=== PATIENT | female | born 1990 | race Caucasian/White ===

== ENCOUNTER 2022-01-16 19:36 | Inpatient (IN) | payer BC ==
[2022-01-16] MEDS ORDERED: Calcium Carbonate 500 MG Tab.Chew PO PRN (19:48)
[2022-01-16] MEDS ORDERED: Nalbuphine HCl 10 MG/ 1ML Amp IVPUSH PRN (19:48)
[2022-01-16] MEDS ORDERED: Lactated Ringers 1,000 ML IV SCH (20:00)
[2022-01-16] MEDS ORDERED: Oxytocin/Lactated Ringers 10 UNIT/1,000 ML BAG IV SCH (20:00)
[2022-01-16] MEDS ORDERED: Ampicillin 2 GM in Sodium Chloride 0.9% 100 ML IV ONE (20:30)
[2022-01-17] MEDS: Ampicillin 1 GM in Sodium Chloride 0.9% 100 ML IV SCH ×2 (00:27→05:25)
[2022-01-17] MEDS ORDERED: Lidocaine 1% 50 ML MDV INJECT SCH (01:15)
[2022-01-17] MEDS ORDERED: Witch Hazel Medicated Pads 40/Jar TOP PRN (05:49)
[2022-01-17] MEDS ORDERED: Hydrocortisone Acetate 25 MG Supp RECTAL PRN (05:49)
[2022-01-17] MEDS ORDERED: Oxytocin/Lactated Ringers 10 UNIT/1,000 ML BAG IV SCH (05:49)
[2022-01-17] MEDS ORDERED: Benzocaine/Menthol 20%-0.5% Spray 78 GM Cannister TOP PRN (05:49)
[2022-01-17] MEDS ORDERED: Docusate Sodium 100 MG Cap PO PRN (05:49)
[2022-01-17] MEDS ORDERED: Acetaminophen 325 MG Tab PO PRN (05:49)
[2022-01-17] MEDS ORDERED: Magnesium Hydroxide 400 MG/5 ML Susp 30 ML Cup PO PRN (05:49)
[2022-01-17] MEDS ORDERED: Measles, Mumps & Rubella Vaccine 0.5 ML SDV SUBCUT ONE (05:49)
[2022-01-17] MEDS: Prenatal Multivitamin with Calcium/Folic Acid/Iron Tab PO SCH (09:08)
[2022-01-17] MEDS: Ibuprofen 600 MG Tab PO PRN ×2 (13:54→21:32)
[2022-01-18] MEDS: Prenatal Multivitamin with Calcium/Folic Acid/Iron Tab PO SCH (09:17)
== END 2022-01-18 13:11 | disposition home or self-care (01) | DRG 560 ==
LOC: JD.OBCHECK 19:36 → JD.OB 19:37 → OBSVTOIN 01-17 05:06 → JD.OB 01-17 05:07
PROVIDERS: ADMIT Obstetrics & Gynecology; ATTEND Obstetrics & Gynecology
PROC: 10E0XZZ Delivery of Products of Conception, External Approach (ICD-10-PCS; principal; 2022-01-17)
PROC: 0HQ9XZZ Repair Perineum Skin, External Approach (ICD-10-PCS; 2022-01-17)
PROC: 3E033VJ Introduction of Other Hormone into Peripheral Vein, Percutaneous Approach (ICD-10-PCS; 2022-01-17)
PROC: 10907ZC Drainage of Amniotic Fluid, Therapeutic from Products of Conception, Via Natural or Artificial Opening (ICD-10-PCS; 2022-01-17)
PROC: 3E0R3BZ Introduction of Anesthetic Agent into Spinal Canal, Percutaneous Approach (ICD-10-PCS; 2022-01-17)
DX: O48.0 Post-term pregnancy (principal); Z3A.41 41 weeks gestation of pregnancy; Z37.0 Single live birth; O99.824 Streptococcus B carrier state complicating childbirth; O69.81X0 Labor and delivery complicated by cord around neck, without compression, not applicable or unspecified; O77.0 Labor and delivery complicated by meconium in amniotic fluid; Z87.891 Personal history of nicotine dependence
CPT/HCPCS: 36415; 59025; 59409; 80053; 82570; 83615; 84156; 85025; 86592; 86850; 86900; 86901; A9270-GY; J0290; J2001; J2590; J7120

== ENCOUNTER 2022-07-05 07:55 | Emergency (ER) | payer BC ==
[2022-07-05] MEDS ORDERED: Iopamidol 755 Mg/ML 100 ML Bottle IVPUSH ONE (08:25)
[2022-07-05] MEDS: Sodium Chloride 0.9% 10 ML Syringe FLUSH PRN ×2 (08:29→08:58)
[2022-07-05] MEDS ORDERED: Sodium Chloride 0.9% 45 ML IV SCH (08:30)
[2022-07-05] MEDS ORDERED: Dextrose 5%-0.9% NaCl 1,000 ML IV SCH (08:45)
[2022-07-05 09:24] LABS: CORONAVIRUS COVID-19 NAA NEGATIVE (NEGATIVE)
[2022-07-05] MEDS ORDERED: Albuterol/Ipratropium 3.0-0.5 MG/3 ML Neb Soln NEB PRN (09:44)
[2022-07-05] MEDS ORDERED: methylPREDNISolone Sodium Succinate 125 MG/2 ML SDV IVPUSH ONE (09:56)
== END 2022-07-05 11:45 | disposition home or self-care (01) ==
LOC: JD.ED 07:55
DX: J43.1 Panlobular emphysema (principal); Z79.899 Other long term (current) drug therapy; Z20.822 Contact with and (suspected) exposure to COVID-19
CPT/HCPCS: 0240U; 36415; 36600; 71045; 71275; 80053; 82103; 82553; 82803; 83735; 83880; 84703; 85025; 85379; 85610; 85730; 86140; 93005; 94640; 96374; 99285; J2930; J3490; Q9967; J7620-GY